=== PATIENT | male | born 1975 | race Two or more races ===

== ENCOUNTER 2020-03-29 19:16 | Emergency (ER) | payer OTHER, SELFPAY ==
[2020-03-29 19:49] VITALS: BP 124/79; PULSE 90; RESP 18; TEMP 37; O2SAT 96; BMI 34.4
[2020-03-29 20:57] VITALS: BP 118/77; PULSE 91; RESP 16; TEMP 36.9; O2SAT 97
--- NOTE | 2020-03-29 20:58 | XR_ITS ---
EXAMINATION: XR TIBIA AND FIBULA, LEFT CLINICAL INFORMATION: Cellulitis with question of osteomyelitis COMPARISON: CT tibia and fibula 11/23/2019 TECHNIQUE: AP and lateral views of the left tibia and fibula were obtained. FINDINGS: Since the prior CT, plate and screw devices have been removed from the tibia and fibula. Screw holes are seen. A nonhealed fracture of the distal fibular diaphysis is present. Periosteal reaction is seen. No definite bony destructive lesions are seen to suggest osteomyelitis. MRI would be significantly more sensitive. XR/XR tibia fibula LT 2V IMPRESSION: All hardware has been removed. No gross bony destructive disease to suggest osteomyelitis. MRI would be more sensitive.
[2020-03-29 21:32] LABS: MANUAL DIFF FLAG NO
[2020-03-29 21:42] LABS: Basophils Absolute Auto 0.1 X10*3/uL (0.0-0.2); Basophils Percent Auto 0.5 % (0-2); Eosinophils Absolute Auto 0.7 X10*3/uL (0.0-0.4); Eosinophils Percent Auto 6.7 % (0-4); Hematocrit 43.7 % (42-52); Hemoglobin 14.7 g/dl (14.0-18.0); Imm Gran Abs Auto 0.03 X10*3/uL (0.00-0.03); Imm Gran Pct Auto 0.3 % (0.0-0.4); Lymphocytes Percent Auto 27.1 % (20-40); Mean Corpuscular HGB Conc 33.6 g/dl (31.0-36.0); Mean Corpuscular Hemoglobin 28.9 pg (27.0-33.0); Mean Corpuscular Volume 85.9 fL (80-98); Mean Platelet Volume 11.8 fL (9.4-12.4); Monocytes Absolute Auto 0.9 X10*3/uL (0.1-1.2); Monocytes Percent Auto 7.9 % (2-11); Neutrophils Absolute Auto 6.4 X10*3/uL (2.0-8.3); Neutrophils Percent Auto 57.5 % (45-73); Platelet Count 320 X10*3/uL (160-400); Red Blood Count 5.09 X10*6/uL (4.60-5.80); Red Cell Distribution Width 12.2 % (11.0-16.0); White Blood Count 11.1 X10*3/uL (4.8-10.8)
[2020-03-29 22:42] VITALS: BP 110/66; PULSE 92; RESP 18; TEMP 36.6; O2SAT 98
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
== END 2020-03-30 01:59 | disposition home or self-care (01) ==
PROVIDERS: Emergency Provider Emergency Medicine; PCP Internal Medicine
DX: L03.116 Cellulitis of left lower limb (principal); M75.32 Calcific tendinitis of left shoulder; M25.512 Pain in left shoulder; Z79.899 Other long term (current) drug therapy
CPT/HCPCS: 36415; 73590; 85025; 87040; 99284

== ENCOUNTER 2020-06-23 09:24 | Outpatient (REF) | payer OTHER, SELFPAY ==
--- NOTE | 2020-06-23 09:33 | ECG_ITS ---
Test Reason : PREPROC EXAM Blood Pressure : / mmHG Vent. Rate : 071 BPM Atrial Rate : 071 BPM P-R Int : 130 ms QRS Dur : 080 ms QT Int : 394 ms P-R-T Axes : 000 036 035 degrees QTc Int : 428 ms Normal sinus rhythm Low voltage QRS Borderline ECG No significant changes when compared with the previous EKG of 23 sep 2011 Referred By: Mart Garcia Electronically Signed By:BAMBI LOPEZ
[2020-06-23 10:04] LABS: MANUAL DIFF FLAG NO
[2020-06-23 10:07] LABS: Glucose Urine UA NEG (NEG); Leukocyte Esterase Urine NEG (NEG); Nitrite Urine NEG (NEG); Specific Gravity - Urine 1.025 (1.005-1.025); Urine Blood NEG (NEG); Urine Ketones NEG (NEG); Urine Protein NEG (NEG-TRACE)
[2020-06-23 10:08] LABS: Appearance Urine CLEAR; Color Urine YELLOW
[2020-06-23 10:12] LABS: Basophils Absolute Auto 0.1 X10*3/uL (0.0-0.2); Basophils Percent Auto 0.6 % (0-2); Eosinophils Absolute Auto 0.7 X10*3/uL (0.0-0.4); Eosinophils Percent Auto 9.1 % (0-4); Hematocrit 43.4 % (42-52); Hemoglobin 14.2 g/dl (14.0-18.0); Imm Gran Abs Auto 0.01 X10*3/uL (0.00-0.03); Imm Gran Pct Auto 0.1 % (0.0-0.4); Lymphocytes Absolute Auto 2.7 X10*3/uL (1.2-4.9); Lymphocytes Percent Auto 34.6 % (20-40); Mean Corpuscular HGB Conc 32.7 g/dl (31.0-36.0); Mean Corpuscular Hemoglobin 28.5 pg (27.0-33.0); Mean Platelet Volume 11.2 fL (9.4-12.4); Monocytes Absolute Auto 0.6 X10*3/uL (0.1-1.2); Monocytes Percent Auto 8.1 % (2-11); Neutrophils Absolute Auto 3.8 X10*3/uL (2.0-8.3); Neutrophils Percent Auto 47.5 % (45-73); Platelet Count 280 X10*3/uL (160-400); Red Blood Count 4.99 X10*6/uL (4.60-5.80); Red Cell Distribution Width 12.5 % (11.0-16.0); White Blood Count 7.9 X10*3/uL (4.8-10.8)
[2020-06-23 10:14] LABS: INTERNATIONAL NORM RATIO 0.9 (0.9-1.1); Prothrombin Time 11.2 SEC (10.8-13.0)
[2020-06-23 10:16] LABS: Partial Thromboplastin Time 32.8 SEC (24.1-38.0)
[2020-06-23 10:25] LABS: Estimated Average Glucose 214 mg/dL; Hemoglobin A1c % 9.1 %
[2020-06-23 10:49] LABS: Alanine Aminotransferase 35 U/L (0-40); Albumin Level 4.3 g/dL (3.5-5.0); Alkaline Phosphatase 114 U/L (39-117); Anion Gap 12 (12-20); Aspartate Amino Transferase 20 U/L (5-37); Bilirubin Total 0.5 mg/dL (0.0-1.0); Blood Urea Nitrogen 13 mg/dL (9-16); Carbon Dioxide 26 mmol/L (22-29); Chloride 104 mmol/L (96-108); Estimated Glomerular Filt Rate > 60; Glucose Random 141 mg/dL (60-115); Potassium 4.4 mmol/L (3.3-5.1); Sodium 138 mmol/L (135-145); Total Protein 7.5 g/dL (6.5-8.0)
== END 2020-06-23 09:25 | disposition home or self-care (01) ==
LOC: HO.LAB 09:24
PROVIDERS: PCP Internal Medicine; Visit Provider Internal Medicine
DX: Z01.818 Encounter for other preprocedural examination (principal); E11.9 Type 2 diabetes mellitus without complications; I10 Essential (primary) hypertension; E78.00 Pure hypercholesterolemia, unspecified; Z79.4 Long term (current) use of insulin
CPT/HCPCS: 36415; 80053; 81003; 83036; 85025; 85610; 85730; 93005

== ENCOUNTER 2020-10-28 08:20 | Outpatient (REF) | payer OTHER, SELFPAY ==
[2020-10-28 09:58] LABS: MANUAL DIFF FLAG NO
[2020-10-28 10:07] LABS: Basophils Percent Auto 0.3 % (0-2); Eosinophils Absolute Auto 0.5 X10*3/uL (0.0-0.4); Eosinophils Percent Auto 4.9 % (0-4); Hematocrit 43.9 % (42-52); Hemoglobin 14.1 g/dl (14.0-18.0); Imm Gran Abs Auto 0.03 X10*3/uL (0.00-0.03); Imm Gran Pct Auto 0.3 % (0.0-0.4); Lymphocytes Absolute Auto 3.8 X10*3/uL (1.2-4.9); Lymphocytes Percent Auto 34.4 % (20-40); Mean Corpuscular HGB Conc 32.1 g/dl (31.0-36.0); Mean Corpuscular Hemoglobin 27.4 pg (27.0-33.0); Mean Corpuscular Volume 85.2 fL (80-98); Mean Platelet Volume 11.5 fL (9.4-12.4); Neutrophils Absolute Auto 5.6 X10*3/uL (2.0-8.3); Neutrophils Percent Auto 51.1 % (45-73); Platelet Count 310 X10*3/uL (160-400); Red Blood Count 5.15 X10*6/uL (4.60-5.80); Red Cell Distribution Width 12.5 % (11.0-16.0)
[2020-10-28 10:11] LABS: Alanine Aminotransferase 14 U/L (0-40); Albumin Level 4.7 g/dL (3.5-5.0); Alkaline Phosphatase 131 U/L (39-117); Anion Gap 11 (12-20); Aspartate Amino Transferase 15 U/L (5-37); Bilirubin Total 0.5 mg/dL (0.0-1.0); Blood Urea Nitrogen 21 mg/dL (9-16); Carbon Dioxide 29 mmol/L (22-29); Chloride 102 mmol/L (96-108); Cholesterol 163 mg/dL; Estimated Glomerular Filt Rate > 60; Glucose Fasting 138 mg/dL (60-99); HDL Cholesterol 39 mg/dL; LDL Cholesterol Calculated 94 mg/dl; Potassium 4.8 mmol/L (3.3-5.1); Sodium 137 mmol/L (135-145); Total Protein 8.2 g/dL (6.5-8.0); Triglycerides 152 mg/dL
[2020-10-28 10:33] LABS: TSH reflex Free T4 3.33 uIU/mL (0.32-4.0)
[2020-10-28 10:42] LABS: Estimated Average Glucose 174 mg/dL; Hemoglobin A1c % 7.7 %
[2020-10-28 11:40] LABS: Glucose Urine UA 250 MG/DL (NEG); Leukocyte Esterase Urine NEG (NEG); Nitrite Urine NEG (NEG); Specific Gravity - Urine 1.025 (1.005-1.025); Urine Blood NEG (NEG); Urine Ketones NEG (NEG); Urine Protein NEG (NEG-TRACE)
[2020-10-28 11:44] LABS: Appearance Urine CLEAR; Color Urine YELLOW
[2020-10-28 13:35] LABS: Creatinine Urine 118.57 mg/dL
== END 2020-10-28 08:21 | disposition home or self-care (01) ==
LOC: HO.LAB 08:20
PROVIDERS: PCP Internal Medicine; Visit Provider Internal Medicine
DX: I10 Essential (primary) hypertension (principal); G63 Polyneuropathy in diseases classified elsewhere; E11.9 Type 2 diabetes mellitus without complications; E78.00 Pure hypercholesterolemia, unspecified; E66.9 Obesity, unspecified; Z79.4 Long term (current) use of insulin
CPT/HCPCS: 36415; 80053; 80061; 81003; 82043; 83036; 84443; 85025

== ENCOUNTER 2021-02-08 12:08 | Outpatient (REF) | payer OTHER, SELFPAY ==
[2021-02-08 13:21] LABS: Basophils Percent Auto 0.3 % (0-2); Eosinophils Absolute Auto 0.7 X10*3/uL (0.0-0.4); Eosinophils Percent Auto 6.8 % (0-4); Hematocrit 44.9 % (42-52); Hemoglobin 14.8 g/dl (14.0-18.0); Imm Gran Abs Auto 0.03 X10*3/uL (0.00-0.03); Imm Gran Pct Auto 0.3 % (0.0-0.4); Lymphocytes Absolute Auto 3.2 X10*3/uL (1.2-4.9); Lymphocytes Percent Auto 32.4 % (20-40); MANUAL DIFF FLAG NO; Mean Corpuscular Hemoglobin 28.1 pg (27.0-33.0); Mean Corpuscular Volume 85.4 fL (80-98); Mean Platelet Volume 11.4 fL (9.4-12.4); Monocytes Absolute Auto 0.9 X10*3/uL (0.1-1.2); Monocytes Percent Auto 8.9 % (2-11); Neutrophils Percent Auto 51.3 % (45-73); Platelet Count 243 X10*3/uL (160-400); Red Blood Count 5.26 X10*6/uL (4.60-5.80); Red Cell Distribution Width 13.4 % (11.0-16.0); White Blood Count 9.7 X10*3/uL (4.8-10.8)
[2021-02-08 13:25] LABS: Estimated Average Glucose 223 mg/dL; Hemoglobin A1c % 9.4 %
[2021-02-08 13:46] LABS: Appearance Urine CLEAR; Color Urine YELLOW; Glucose Urine UA NEG (NEG); Leukocyte Esterase Urine NEG (NEG); Nitrite Urine NEG (NEG); Specific Gravity - Urine 1.025 (1.005-1.025); Urine Blood NEG (NEG); Urine Ketones NEG (NEG); Urine Protein NEG (NEG-TRACE)
[2021-02-08 13:49] LABS: Alanine Aminotransferase 27 U/L (0-40); Albumin Level 4.6 g/dL (3.5-5.0); Alkaline Phosphatase 109 U/L (39-117); Anion Gap 15 (12-20); Aspartate Amino Transferase 20 U/L (5-37); Bilirubin Total 0.8 mg/dL (0.0-1.0); Blood Urea Nitrogen 20 mg/dL (9-16); Calcium 9.8 mg/dL (8.4-10.2); Carbon Dioxide 22 mmol/L (22-29); Chloride 103 mmol/L (96-108); Cholesterol 169 mg/dL; Estimated Glomerular Filt Rate > 60; Glucose Fasting 171 mg/dL (60-99); HDL Cholesterol 43 mg/dL; LDL Cholesterol Calculated 103 mg/dl; Potassium 4.2 mmol/L (3.3-5.1); Sodium 136 mmol/L (135-145); Triglycerides 118 mg/dL
[2021-02-08 14:03] LABS: Creatinine Urine 226.56 mg/dL; Microalbum/Creatinine Ratio Ur 12.8 ug/mg cr
[2021-02-08 14:12] LABS: Prostate Specific Antigen 0.23 ng/mL (<0.05-4.0); TSH reflex Free T4 2.35 uIU/mL (0.32-4.0); Vitamin D 25-OH Total 28.9 ng/mL (>30)
== END 2021-02-08 12:09 | disposition home or self-care (01) ==
LOC: HO.LAB 12:08
PROVIDERS: PCP Internal Medicine; Visit Provider Internal Medicine
DX: Z00.00 Encounter for general adult medical examination without abnormal findings (principal); Z12.5 Encounter for screening for malignant neoplasm of prostate; E11.9 Type 2 diabetes mellitus without complications; E78.00 Pure hypercholesterolemia, unspecified; I10 Essential (primary) hypertension; N40.1 Benign prostatic hyperplasia with lower urinary tract symptoms; E55.9 Vitamin D deficiency, unspecified; E66.9 Obesity, unspecified; Z79.4 Long term (current) use of insulin
CPT/HCPCS: 36415; 80053; 80061; 81003; 82043; 82306; 83036; 84153; 84443; 85025

== ENCOUNTER 2021-11-09 07:59 | Outpatient (REF) | payer OTHER, SELFPAY ==
[2021-11-09 08:11] LABS: MANUAL DIFF FLAG NO
[2021-11-09 09:40] LABS: Basophils Percent Auto 0.4 % (0-2); Eosinophils Absolute Auto 0.6 X10*3/uL (0.0-0.4); Eosinophils Percent Auto 6.7 % (0-4); Hematocrit 43.3 % (42.0-52.0); Hemoglobin 14.5 g/dl (14.0-18.0); Imm Gran Abs Auto 0.01 X10*3/uL (0.00-0.03); Imm Gran Pct Auto 0.1 % (0.0-0.4); Lymphocytes Absolute Auto 3.7 X10*3/uL (1.2-4.9); Lymphocytes Percent Auto 40.9 % (20-40); Mean Corpuscular HGB Conc 33.5 g/dl (31.0-36.0); Mean Corpuscular Hemoglobin 29.2 pg (27.0-33.0); Mean Corpuscular Volume 87.3 fL (80.0-98.0); Mean Platelet Volume 11.8 fL (9.4-12.4); Monocytes Absolute Auto 0.8 X10*3/uL (0.1-1.2); Monocytes Percent Auto 8.6 % (2-11); Neutrophils Absolute Auto 3.9 x10*3/uL (2.0-8.3); Neutrophils Percent Auto 43.3 % (45-73); Platelet Count 258 X10*3/uL (160-400); Red Blood Count 4.96 X10*6/uL (4.60-5.80); Red Cell Distribution Width 12.2 % (11.0-16.0); White Blood Count 9.1 X10*3/uL (4.8-10.8)
[2021-11-09 09:50] LABS: Appearance Urine CLEAR; Color Urine YELLOW; Glucose Urine UA NEG (NEG); Leukocyte Esterase Urine NEG (NEG); Nitrite Urine NEG (NEG); PH 5.5 (5.0-8.0); Specific Gravity - Urine >= 1.030 (1.005-1.025); Urine Blood NEG (NEG); Urine Ketones NEG (NEG); Urine Protein NEG (NEG-TRACE)
[2021-11-09 09:52] LABS: Estimated Average Glucose 237 mg/dL; Hemoglobin A1c % 9.9 %
[2021-11-09 10:22] LABS: Alanine Aminotransferase 28 U/L (0-40); Albumin Level 4.4 g/dL (3.5-5.0); Alkaline Phosphatase 93 U/L (39-117); Anion Gap 14 (12-20); Aspartate Amino Transferase 19 U/L (5-37); Bilirubin Total 0.6 mg/dL (0.0-1.0); Blood Urea Nitrogen 18 mg/dL (9-16); Calcium 9.1 mg/dL (8.4-10.2); Carbon Dioxide 23 mmol/L (22-29); Chloride 104 mmol/L (96-108); Cholesterol 171 mg/dL; Estimated Glomerular Filt Rate > 60; Glucose Fasting 115 mg/dL (60-99); HDL Cholesterol 38 mg/dL; LDL Cholesterol Calculated 93 mg/dl; Potassium 4.3 mmol/L (3.3-5.1); Sodium 137 mmol/L (135-145); Total Protein 7.6 g/dL (6.5-8.0); Triglycerides 203 mg/dL
[2021-11-09 10:34] LABS: TSH reflex Free T4 3.05 uIU/mL (0.32-4.0); Vitamin D 25-OH Total 26.5 ng/mL (>30)
[2021-11-09 10:37] LABS: Creatinine Urine 237.61 mg/dL; Microalbum/Creatinine Ratio Ur 7.1 ug/mg cr
== END 2021-11-09 08:00 | disposition home or self-care (01) ==
LOC: HO.LAB 07:59
PROVIDERS: PCP Internal Medicine; Visit Provider Internal Medicine
DX: E11.9 Type 2 diabetes mellitus without complications (principal); E78.00 Pure hypercholesterolemia, unspecified; I10 Essential (primary) hypertension; E55.9 Vitamin D deficiency, unspecified
CPT/HCPCS: 36415; 80053; 80061; 81003; 82043; 82306; 83036; 84443; 85025

== ENCOUNTER 2022-04-23 08:10 | Outpatient (REF) | payer OTHER, SELFPAY ==
[2022-04-23 08:38] LABS: MANUAL DIFF FLAG NO
[2022-04-23 08:50] LABS: Basophils Absolute Auto 0.1 X10*3/uL (0.0-0.2); Basophils Percent Auto 0.5 % (0-2); Eosinophils Absolute Auto 0.9 X10*3/uL (0.0-0.4); Eosinophils Percent Auto 9.4 % (0-4); Hematocrit 43.6 % (42.0-52.0); Hemoglobin 14.6 g/dl (14.0-18.0); Imm Gran Abs Auto 0.02 X10*3/uL (0.00-0.03); Imm Gran Pct Auto 0.2 % (0.0-0.4); Lymphocytes Absolute Auto 3.4 X10*3/uL (1.2-4.9); Lymphocytes Percent Auto 35.3 % (20-40); Mean Corpuscular HGB Conc 33.5 g/dl (31.0-36.0); Mean Corpuscular Volume 86.5 fL (80.0-98.0); Mean Platelet Volume 11.1 fL (9.4-12.4); Monocytes Percent Auto 10.4 % (2-11); Neutrophils Absolute Auto 4.2 x10*3/uL (2.0-8.3); Neutrophils Percent Auto 44.2 % (45-73); Platelet Count 229 X10*3/uL (160-400); Red Blood Count 5.04 X10*6/uL (4.60-5.80); Red Cell Distribution Width 13.2 % (11.0-16.0); White Blood Count 9.5 X10*3/uL (4.8-10.8)
[2022-04-23 08:51] LABS: Appearance Urine Clear; Color Urine Yellow; Glucose Urine UA Negative (Negative); Leukocyte Esterase Urine Negative (Negative); Nitrite Urine Negative (Negative); PH 5.5 (5.0-9.0); Specific Gravity - Urine 1.025 (1.005-1.025); Urine Blood Negative (Negative); Urine Ketones Negative (Negative); Urine Protein Negative (Neg-Trace)
[2022-04-23 08:58] LABS: Estimated Average Glucose 183 mg/dL
[2022-04-23 09:12] LABS: Creatinine Urine 187.88 mg/dL; Microalbum/Creatinine Ratio Ur 6.3 ug/mg cr
[2022-04-23 09:37] LABS: Alanine Aminotransferase 19 U/L (0-40); Albumin Level 4.5 g/dL (3.5-5.0); Alkaline Phosphatase 76 U/L (39-117); Anion Gap 10 (12-20); Aspartate Amino Transferase 18 U/L (5-37); Bilirubin Total 0.6 mg/dL (0.0-1.0); Blood Urea Nitrogen 17 mg/dL (9-16); Calcium 9.6 mg/dL (8.4-10.2); Carbon Dioxide 31 mmol/L (22-29); Chloride 106 mmol/L (96-108); Cholesterol 175 mg/dL; Estimated Glomerular Filt Rate > 60; Glucose Fasting 105 mg/dL (60-99); HDL Cholesterol 42 mg/dL; LDL Cholesterol Calculated 111 mg/dl; Potassium 4.9 mmol/L (3.3-5.1); Prostate Specific Antigen 0.55 ng/mL (<0.05-4.0); Sodium 142 mmol/L (135-145); TSH reflex Free T4 2.53 uIU/mL (0.32-4.0); Total Protein 7.7 g/dL (6.5-8.0); Triglycerides 113 mg/dL; Vitamin D 25-OH Total 33.1 ng/mL (>30)
== END 2022-04-23 08:11 | disposition home or self-care (01) ==
LOC: HO.LAB 08:10
PROVIDERS: PCP Internal Medicine; Visit Provider Internal Medicine
DX: E55.9 Vitamin D deficiency, unspecified (principal); I10 Essential (primary) hypertension; E78.00 Pure hypercholesterolemia, unspecified; N40.0 Benign prostatic hyperplasia without lower urinary tract symptoms; E11.9 Type 2 diabetes mellitus without complications
CPT/HCPCS: 36415; 80053; 80061; 81003; 82043; 82306; 83036; 84153; 84443; 85025

== ENCOUNTER 2023-02-21 11:38 | Outpatient (AMB) | payer MEDICARE, MEDICAID, SELFPAY ==
[2023-02-21 11:42] VITALS: BP 110/64; PULSE 75; O2SAT 99; BMI 30.4
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
== END 2023-02-21 12:27 | disposition home or self-care (01) ==
PROVIDERS: PCP Internal Medicine; Visit Provider Internal Medicine
DX: E11.9 Type 2 diabetes mellitus without complications (principal); Z79.4 Long term (current) use of insulin; G63 Polyneuropathy in diseases classified elsewhere; Z23 Encounter for immunization; I10 Essential (primary) hypertension; E78.00 Pure hypercholesterolemia, unspecified; R80.9 Proteinuria, unspecified; M79.7 Fibromyalgia; N40.1 Benign prostatic hyperplasia with lower urinary tract symptoms; R35.0 Frequency of micturition; G47.00 Insomnia, unspecified; E66.9 Obesity, unspecified
CPT/HCPCS: 90471; 90686; 99214

== ENCOUNTER 2023-05-17 07:07 | Outpatient (REF) | payer MEDICARE, MEDICAID, SELFPAY ==
[2023-05-17 07:48] LABS: MANUAL DIFF FLAG NO
[2023-05-17 08:17] LABS: Basophils Absolute Auto 0.1 X10*3/uL (0.0-0.2); Basophils Percent Auto 0.5 % (0-2); Eosinophils Absolute Auto 0.5 X10*3/uL (0.0-0.4); Eosinophils Percent Auto 4.1 % (0-4); Hematocrit 47.2 % (42.0-52.0); Hemoglobin 15.9 g/dl (14.0-18.0); Imm Gran Abs Auto 0.02 X10*3/uL (0.00-0.03); Imm Gran Pct Auto 0.2 % (0.0-0.4); Lymphocytes Absolute Auto 3.9 X10*3/uL (1.2-4.9); Lymphocytes Percent Auto 35.1 % (20-40); Mean Corpuscular HGB Conc 33.7 g/dl (31.0-36.0); Mean Corpuscular Hemoglobin 28.9 pg (27.0-33.0); Mean Corpuscular Volume 85.7 fL (80.0-98.0); Mean Platelet Volume 11.9 fL (9.4-12.4); Monocytes Percent Auto 8.6 % (2-11); Neutrophils Absolute Auto 5.7 x10*3/uL (2.0-8.3); Neutrophils Percent Auto 51.5 % (45-73); Platelet Count 247 X10*3/uL (160-400); Red Blood Count 5.51 X10*6/uL (4.60-5.80); Red Cell Distribution Width 12.4 % (11.0-16.0)
[2023-05-17 08:26] LABS: Estimated Average Glucose 246 mg/dL; Hemoglobin A1c % 10.2 % (<6.0)
[2023-05-17 08:55] LABS: Alanine Aminotransferase 16 U/L (0-40); Albumin Level 4.8 g/dL (3.5-5.0); Alkaline Phosphatase 110 U/L (39-117); Anion Gap 15 (12-20); Aspartate Amino Transferase 19 U/L (5-37); Bilirubin Total 0.8 mg/dL (0.0-1.0); Blood Urea Nitrogen 15 mg/dL (9-16); Calcium 10.3 mg/dL (8.4-10.2); Carbon Dioxide 25 mmol/L (22-29); Chloride 100 mmol/L (96-108); Cholesterol 259 mg/dL (<200); Estimated Glomerular Filt Rate > 60; Glucose Fasting 201 mg/dL (60-99); HDL Cholesterol 48 mg/dL (>40); LDL Cholesterol Calculated 162 mg/dL (<100); Potassium 3.6 mmol/L (3.3-5.1); Sodium 136 mmol/L (135-145); Total Protein 8.9 g/dL (6.5-8.0); Triglycerides 249 mg/dL (<150)
[2023-05-17 09:07] LABS: Appearance Urine Clear; Color Urine Dark Yellow; Glucose Urine UA >=1000 mg/dL (Negative); Leukocyte Esterase Urine Negative (Negative); Nitrite Urine Negative (Negative); PH 5.5 (5.0-9.0); Specific Gravity - Urine >= 1.030 (1.005-1.025); UMIC TRIGGER UACC YES; Urine Blood Negative (Negative); Urine Ketones Trace mg/dL (Negative); Urine Protein Negative (Neg-Trace)
[2023-05-17 09:12] LABS: TSH reflex Free T4 3.92 uIU/mL (0.32-4.0)
[2023-05-17 09:14] LABS: Bacteria Urine None Seen (None Seen); Hyaline Casts Urine 0-2 /LPF (0-2); RBC Urine 0-2 /HPF (0-2); Squamous Epithelial Cell Urine 0-2 /HPF (0-2); WBC Urine 0-5 /HPF (0-5)
[2023-05-17 10:55] LABS: Creatinine Urine 162.12 mg/dL; Microalbum/Creatinine Ratio Ur 19.7 ug/mg cr (<30)
== END 2023-05-17 07:08 | disposition home or self-care (01) ==
LOC: HO.LAB 07:07
PROVIDERS: PCP Internal Medicine; Visit Provider Internal Medicine
DX: E11.9 Type 2 diabetes mellitus without complications (principal); I10 Essential (primary) hypertension; E78.00 Pure hypercholesterolemia, unspecified; E55.9 Vitamin D deficiency, unspecified; R30.0 Dysuria
CPT/HCPCS: 36415; 80053; 80061; 81001; 81003; 82043; 82306; 82570; 83036; 84443; 85025

== ENCOUNTER 2023-06-05 11:49 | Outpatient (AMB) | payer OTHER, SELFPAY ==
[2023-06-05 12:32] VITALS: BP 110/80; PULSE 100; O2SAT 98; BMI 28.3
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
== END 2023-06-05 13:28 | disposition home or self-care (01) ==
PROVIDERS: PCP Internal Medicine; Visit Provider Internal Medicine
DX: E11.9 Type 2 diabetes mellitus without complications (principal); Z79.4 Long term (current) use of insulin; E66.9 Obesity, unspecified; Z68.28 Body mass index [BMI] 28.0-28.9, adult; G63 Polyneuropathy in diseases classified elsewhere; I10 Essential (primary) hypertension; E78.00 Pure hypercholesterolemia, unspecified; R80.9 Proteinuria, unspecified; M79.7 Fibromyalgia; N40.1 Benign prostatic hyperplasia with lower urinary tract symptoms; R35.0 Frequency of micturition; G47.00 Insomnia, unspecified
CPT/HCPCS: 99214

== ENCOUNTER 2023-10-30 07:08 | Outpatient (REF) | payer OTHER, SELFPAY ==
[2023-10-30 07:25] LABS: MANUAL DIFF FLAG NO
[2023-10-30 07:45] LABS: Basophils Absolute Auto 0.1 X10*3/uL (0.0-0.2); Basophils Percent Auto 0.7 % (0-2); Eosinophils Absolute Auto 0.6 X10*3/uL (0.0-0.4); Eosinophils Percent Auto 6.2 % (0-4); Hematocrit 42.6 % (42.0-52.0); Hemoglobin 14.2 g/dl (14.0-18.0); Imm Gran Abs Auto 0.02 X10*3/uL (0.00-0.03); Imm Gran Pct Auto 0.2 % (0.0-0.4); Lymphocytes Absolute Auto 3.7 X10*3/uL (1.2-4.9); Lymphocytes Percent Auto 37.5 % (20-40); Mean Corpuscular HGB Conc 33.3 g/dl (31.0-36.0); Mean Corpuscular Hemoglobin 29.4 pg (27.0-33.0); Mean Corpuscular Volume 88.2 fL (80.0-98.0); Mean Platelet Volume 10.9 fL (9.4-12.4); Monocytes Absolute Auto 0.8 X10*3/uL (0.1-1.2); Monocytes Percent Auto 7.6 % (2-11); Neutrophils Absolute Auto 4.7 x10*3/uL (2.0-8.3); Neutrophils Percent Auto 47.8 % (45-73); Platelet Count 196 X10*3/uL (160-400); Red Blood Count 4.83 X10*6/uL (4.60-5.80); Red Cell Distribution Width 12.7 % (11.0-16.0); White Blood Count 9.9 X10*3/uL (4.8-10.8)
[2023-10-30 07:55] LABS: Estimated Average Glucose 232 mg/dL; Hemoglobin A1c % 9.7 % (<6.0)
[2023-10-30 08:31] LABS: Alanine Aminotransferase 16 U/L (0-40); Albumin Level 3.9 g/dL (3.5-5.0); Alkaline Phosphatase 72 U/L (39-117); Anion Gap 10 (12-20); Aspartate Amino Transferase 16 U/L (5-37); Bilirubin Total 0.2 mg/dL (0.0-1.0); Blood Urea Nitrogen 18 mg/dL (9-16); Calcium 9.1 mg/dL (8.4-10.2); Carbon Dioxide 28 mmol/L (22-29); Chloride 106 mmol/L (96-108); Cholesterol 158 mg/dL (<200); Estimated Glomerular Filt Rate > 60; Glucose Fasting 109 mg/dL (60-99); HDL Cholesterol 43 mg/dL (>40); LDL Cholesterol Calculated 94 mg/dL (<100); Potassium 3.8 mmol/L (3.3-5.1); Sodium 140 mmol/L (135-145); Total Protein 7.2 g/dL (6.5-8.0); Triglycerides 109 mg/dL (<150)
[2023-10-30 08:32] LABS: Appearance Urine Clear; Color Urine Yellow; Glucose Urine UA >=1000 mg/dL (Negative); Leukocyte Esterase Urine Negative (Negative); Nitrite Urine Negative (Negative); PH 5.5 (5.0-9.0); Specific Gravity - Urine 1.025 (1.005-1.025); UMIC TRIGGER UACC YES; Urine Blood Negative (Negative); Urine Ketones Negative (Negative); Urine Protein Negative (Neg-Trace)
[2023-10-30 08:37] LABS: Bacteria Urine None Seen (None Seen); Hyaline Casts Urine 0-2 /LPF (0-2); RBC Urine 0-2 /HPF (0-2); Squamous Epithelial Cell Urine 0-2 /HPF (0-2); WBC Urine 0-5 /HPF (0-5)
[2023-10-30 08:52] LABS: Folate 11.9 ng/mL (> or = 4.0); Vitamin B12 384 pg/mL (200-900); Vitamin D 25-OH Total 24.7 ng/mL (>30)
[2023-10-30 08:59] LABS: Creatinine Urine 78.36 mg/dL; Microalbumin Urine < 5.0 mg/L
== END 2023-10-30 07:09 | disposition home or self-care (01) ==
LOC: HO.LAB 07:08
PROVIDERS: PCP Internal Medicine; Visit Provider Internal Medicine
DX: E55.9 Vitamin D deficiency, unspecified (principal); E78.00 Pure hypercholesterolemia, unspecified; E11.9 Type 2 diabetes mellitus without complications; E53.8 Deficiency of other specified B group vitamins; D64.9 Anemia, unspecified
CPT/HCPCS: 36415; 80053; 80061; 81001; 82306; 82570; 82607; 82746; 83036; 84443; 85025

== ENCOUNTER 2023-10-30 15:11 | Outpatient (AMB) | payer OTHER, SELFPAY ==
[2023-10-30 15:14] VITALS: BP 112/72; PULSE 70; O2SAT 99; BMI 31.0
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
== END 2023-10-30 16:16 | disposition home or self-care (01) ==
PROVIDERS: PCP Internal Medicine; Visit Provider Internal Medicine
DX: E11.9 Type 2 diabetes mellitus without complications (principal); Z79.4 Long term (current) use of insulin; I10 Essential (primary) hypertension; E78.00 Pure hypercholesterolemia, unspecified; G63 Polyneuropathy in diseases classified elsewhere; R80.9 Proteinuria, unspecified; M79.7 Fibromyalgia; N40.1 Benign prostatic hyperplasia with lower urinary tract symptoms; R35.0 Frequency of micturition; G47.00 Insomnia, unspecified; E66.9 Obesity, unspecified
CPT/HCPCS: 99214; G2211

== ENCOUNTER 2023-11-03 15:33 | Emergency (ER) | payer OTHER, SELFPAY ==
[2023-11-03 15:36] VITALS: BP 132/77; PULSE 111; RESP 18; TEMP 36.5; O2SAT 97; BMI 30.6
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
[2023-11-03 15:46] LABS: MANUAL DIFF FLAG NO
[2023-11-03 15:50] LABS: Basophils Absolute Auto 0.1 X10*3/uL (0.0-0.2); Basophils Percent Auto 0.7 % (0-2); Eosinophils Absolute Auto 0.9 X10*3/uL (0.0-0.4); Eosinophils Percent Auto 9.3 % (0-4); Hematocrit 46.3 % (42.0-52.0); Hemoglobin 15.7 g/dl (14.0-18.0); Imm Gran Abs Auto 0.03 X10*3/uL (0.00-0.03); Imm Gran Pct Auto 0.3 % (0.0-0.4); Lymphocytes Absolute Auto 2.3 X10*3/uL (1.2-4.9); Lymphocytes Percent Auto 22.6 % (20-40); Mean Corpuscular HGB Conc 33.9 g/dl (31.0-36.0); Mean Corpuscular Hemoglobin 29.3 pg (27.0-33.0); Mean Corpuscular Volume 86.5 fL (80.0-98.0); Monocytes Absolute Auto 0.9 X10*3/uL (0.1-1.2); Monocytes Percent Auto 8.9 % (2-11); Neutrophils Absolute Auto 5.9 x10*3/uL (2.0-8.3); Neutrophils Percent Auto 58.2 % (45-73); Platelet Count 224 X10*3/uL (160-400); Red Blood Count 5.35 X10*6/uL (4.60-5.80); Red Cell Distribution Width 12.8 % (11.0-16.0); White Blood Count 10.1 X10*3/uL (4.8-10.8)
[2023-11-03 16:01] LABS: Alanine Aminotransferase 21 U/L (0-40); Albumin Level 4.5 g/dL (3.5-5.0); Alkaline Phosphatase 87 U/L (39-117); Anion Gap 13 (12-20); Aspartate Amino Transferase 18 U/L (5-37); Bilirubin Total 0.5 mg/dL (0.0-1.0); Blood Urea Nitrogen 13 mg/dL (9-16); Calcium 9.8 mg/dL (8.4-10.2); Carbon Dioxide 28 mmol/L (22-29); Chloride 104 mmol/L (96-108); Creatinine Clr Calc Pharmacy 84.4; Estimated Glomerular Filt Rate > 60; Glucose Random 174 mg/dL (60-115); Magnesium 2.1 mg/dL (1.6-2.6); Sodium 141 mmol/L (135-145); Total Protein 8.3 g/dL (6.5-8.0)
[2023-11-03] MEDS: methylPREDNISolone Sod Succ 125 MG/2 ML VIAL 60 MG IM (16:27)
[2023-11-03 16:34] VITALS: BP 132/77; PULSE 111; RESP 18; TEMP 36.5; O2SAT 97
== END 2023-11-03 16:35 | disposition home or self-care (01) ==
PROVIDERS: Physician Assistant Medical; Emergency Provider Emergency Medicine Emergency Medical Services; PCP Internal Medicine
DX: L30.9 Dermatitis, unspecified (principal); B37.2 Candidiasis of skin and nail; I10 Essential (primary) hypertension; E11.9 Type 2 diabetes mellitus without complications
CPT/HCPCS: 36415; 80053; 83735; 85025; 96372; 99282; 99284; J2919

== ENCOUNTER 2024-07-16 11:20 | Outpatient (AMB) | payer MEDICARE, SELFPAY ==
[2024-07-16 11:31] VITALS: BP 110/80; PULSE 109; O2SAT 96; BMI 29.5
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
--- OUTSIDE RECORDS SUMMARY | 2024-07-16 13:44 | XMS_ITS | Clinical Summary ---
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 Name Role Phone Unavailable Primary Care Provider Unavailabl e Immunizations Name Administration Dates Next Due Moderna Covid-19 Vaccine 12+ 05/17/2021,09/01/19,08/03/2020 Moderna Covid-19 Vaccine 6+ Bivalent 05/03/2022 Social History Tobacco Use Types Packs/Day Years Used Date Smoking Tobacco: Never Assessed Sex and Gender Information Value Date Recorded Sex Assigned at Not on file Legal Sex Male 9:34 AM EST Gender Identity Not on file Sexual Orientation Not on file Plan of Treatment Health Maintenance Due Date Last Done Comments CT Colonography 1976 Colonoscopy 1976 Colorectal Cancer Screening 1976 Depression Screening 1976 FIT DNA/Cologuard 1976 FIT 1976 FOBT 1976 HIV Screening 1976 Lipid Panel 1976 SDOH Screening 1976 Sigmoidoscopy 1976 Alcohol/Substance Use Screening 1988 Tobacco Screening 1988 Family Planning (PISQ) 12/08/1991 Hepatitis C Screening 1994 DTaP/Tdap/Td Vaccines (1 - Tdap) 12/08/1995 Hepatitis B Vaccines (1 of 3 - 19+ 3-dose series) 12/08/1995 COVID-19 Vaccine ( season) 2024 05/03/2022, 05/17/2021, 08/31/2020, Additional history exists Influenza Vaccine (#1) 2024 , 03/22/2021, 03/24/2015 Zoster Vaccines (1 of 2) 2026 RSV Patients and Patients Aged 60 years or older (1 - 1-dose 75+ series) 12/08/2051 HIB Vaccines Aged Out No longer eligi ble based on patient's age to complete this topic HPV Vaccines Aged Out No longer eligi ble based on patient's age to complete this topic Hepatitis A Vaccines Aged Out No long er eligible based on patient's age to complete this topic IPV Vaccines Aged Out No longer eligi ble based on patient's age to complete this topic Meningococcal Vaccine Aged Out No jassi sp eligible based on patient's age to complete this topic Pneumococcal Vaccine: Pediatrics (0 to 5 Years) and At-Risk Patients (6 to 49) Years) Aged Out No longer eligible based on patient's age to complete this topic RSV under 20 months Aged Out No longe r eligible based on patient's age to complete this topic Rotavirus Vaccines Aged Out No longer eligible based on patient's age to complete this topic Insurance [facility]
== END 2024-07-16 12:23 | disposition home or self-care (01) ==
PROVIDERS: PCP Internal Medicine; Visit Provider Internal Medicine
DX: Z13.9 Encounter for screening, unspecified (principal)

== ENCOUNTER → 2024-07-16 11:20 | Outpatient (BNVA) | payer MEDICARE, SELFPAY | PROVIDERS: PCP Internal Medicine; Visit Provider Internal Medicine | DX: E11.9 Type 2 diabetes mellitus without complications (principal); Z79.4 Long term (current) use of insulin; I10 Essential (primary) hypertension; E78.00 Pure hypercholesterolemia, unspecified; G63 Polyneuropathy in diseases classified elsewhere; R80.9 Proteinuria, unspecified; M79.7 Fibromyalgia; N40.1 Benign prostatic hyperplasia with lower urinary tract symptoms; R35.0 Frequency of micturition; G47.00 Insomnia, unspecified; E66.9 Obesity, unspecified | CPT/HCPCS: 83036; 96127; 99212 ==

== ENCOUNTER 2024-08-03 13:56 | Outpatient (AMB) | payer MEDICARE, MEDICAID, SELFPAY ==
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
[2024-08-03 14:01] VITALS: BP 120/80; PULSE 86; O2SAT 96; BMI 30.4
[2024-08-03 14:11] LABS: Glucose, Whole Blood 138 mg/dL (60-115)
--- OUTSIDE RECORDS SUMMARY | 2024-08-03 16:24 | XMS_ITS | Data Portability ---
Author Organization [facility], [address] Address [address] [place] [address] Assessment No assessment recorded. Plan of Treatment Reminders Order Date Submit Date Provider Last Modified By Organization Details Last Modified Time Details Appointments None record ed. Lab None record ed. Referral None record ed. Procedures None record ed. Surgeries None record ed. Imaging None record ed. Medication Orders None record ed. Patient TargetsNo targets recorded. Patient InstructionsNo instructions recorded. Reason for Referral None Reported. Procedures Surgical History Date Name Laterality Status Provider Name and Address Organization Details Recorded Time 4 OC-DOT PHYSICAL completed Alpa Brunson [place] - [facility] [employer] 11/22/2023 08:35:44 3 OC-UDS Send Out Template DOT completed Estella Power [place] - [employer] 10/22/2022 11:22:59 Imaging Results None recorded. Procedure Notes None recorded. Medical Equipment None Reported. Medications Name Sig Start Date Stop Date Status Note LastModified by Organization Details LastModified Time atorvastatin 40 mg tablet TAKE 1 TABLET BY MOUTH EVERY DAY active Not Available Not Available No t Available gabapentin 600 mg tablet TAKE 1 TABLET BY MOUTH THREE TIMES DAILY active Not Available Not Available Not Available atorvastatin 20 mg tablet TAKE 1 TABLET BY MOUTH DAILY active Not Available Not Available Not Available fluconazole 150 mg tablet TAKE 1 TABLET BY MOUTH ONCE EVERY 3 DAYS FOR 2 DOSES active Not Available Not Available No t Available prednisone 20 mg tablet TAKE 1 TABLET BY MOUTH EVERY DAY FOR 7 DAYS active Not Available Not Available No t Available clobetasol 0.05 % topical cream APPLY TO THE AFFECTED AREA(S) TWICE DAILY FOR 1 WEEK active Not Available Not Available N ot Available phentermine 37.5 mg tablet TAKE 1 TABLET BY MOUTH DAILY 30 MINUTES BEFORE BREAKFAST OR 1-2 HOURS AFTER BREAKFAST active Not Available Not Available No t Available metformin 1,000 mg tablet TAKE 1 TABLET BY MOUTH TWICE DAILY active Not Available Not Available No t Available lisinopril 5 mg tablet TAKE 1 TABLET BY MOUTH DAILY active Not Available Not Available Not Available insulin lispro protamine-li spro 100 unit/mL (75-25) subcutaneous pen INJECT 50 UNITS SUBCUTANEOU SLY IN THE MORNING AND INJECT 40 UNITS SUBCUTANEOU SLY IN THE EVENING active Not Available Not Available No t Available Novolog Mix 70-30 FlexPen U-100 Insulin 100 unit/mL subcutaneous pen INJECT 40 UNITS SUBCUTANEOU SLY EVERY DAY IN THE MORNING AND 50 UNITS SUBCUTANEOU SLY EVERY DAY IN THE EVENING active Not Available Not Available No t Available Novolog Mix 70-30 U-100 Insulin 100 unit/mL subcutaneous solution INJECT 40 UNITS SUBCUTANEOU SLY EVERY DAY IN THE MORNING AND 50 UNITS SUBCUTANEOU SLY EVERY DAY AT BEDTIME active Not Available Not Available No t Available cyclobenzapr ine 5 mg tablet TAKE 1 TABLET BY MOUTH THREE TIMES DAILY NEEDED FOR MUSCLE SPASMS active Not Available Not Available No t Available cholecalcife rol (vitamin D3) 25 mcg (1,000 unit) tablet TAKE 1 TABLET BY MOUTH ONCE DAILY active Not Available Not Available No t Available FreeStyle Lite Strips USE TO TEST BLOOD SUGAR THREE TIMES DAILY active Not Available Not Available No t Available Humalog KwikPen (U-100) Insulin 100 unit/mL subcutaneous INJECT 40 UNITS SUBCUTANEOU SLY EVERY DAY IN THE MORNING AND 50 UNITS SUBCUTANEOU SLY EVERY DAY AT BEDTIME active Not Available Not Available No t Available FreeStyle [place] Lite kit TEST BLOOD SUGAR THREE TIMES DAILY active Not Available Not Available Not Available cholecalcife rol (vitamin D3) 50 mcg (2,000 unit) tablet TAKE 1 TABLET BY MOUTH EVERY DAY active Not Available Not Available No t Available UltiCare Pen Needle 32 gauge x 5/32 USE DIRECTED TWICE DAILY active Not Available Not Available Not Available TRUEplus Lancets 33 gauge USE TO TEST BLOOD SUGAR THREE TIMES DAILY active Not Available Not Available No t Available Farxiga 10 mg tablet TAKE 1 TABLET BY MOUTH EVERY DAY IN THE MORNING active Not Available Not Available No t Available Ozempic 0.25 mg or 0.5 mg (2 mg/3 mL) subcutaneous pen injector INJECT 0.25 MG SUBCUTANEOU SLY EVERY 7 DAYS IN THE ABDOMEN, THIGHS OR UPPER ARM. ROTATE INJECTION SITES. active Not Available Not Available No t Available Vitals Date Recorded Body height Body mass index (BMI) Body weight Oxygen saturation Oxygen saturation in Arterial blood by Pulse oximetry Heart rate Respiratory rate Systolic blood pressure Diastolic blood pressure Provider Name and Address Organization Details Last Updated DateTime 4 170.18 cm 29.8 kg/m2 48554.5 5 g 97 % 97 % 83 /min 18 /min 123 mm[Hg] 82 mm[Hg] Alpa PETERSON - [facility] 4 08:39:23 Social History None recorded. Functional Status None recorded. Mental Status None recorded. Family History Nothing Reported. Medical History No medical history recorded. Past Encounters Encounter ID Performer Location Encounter Start Date Encounter Closed Date Diagnosis/Indication Diagnosis SNOMED-CT Code Diagnosis ICD10 Code Diagnosis Note [id number] [address] [address] 08/07/2017 11:29:10 08/07/2017 12:03:[id number] [address] 10/14/2020 14:01:46 10/14/2020 15:54:16 [id number] NICHOLAS CALIXTO [address] [address] 10/22/2022 11:02:40 10/22/2022 11:16:52 History and physical examination, occupation 821881182 Z02.1 [id number] [place] [address] [place] [address] 11/22/2023 08:29:49 11/22/2023 09:20:46 [employer] license medical examination [id number] Z02.4 Physical examination 588 0005 Z02.4 History an d physical examination, pre-employment 462316091 Z02.1 This physical does not replace the annual physical to be performed by your PCP. There may be additional screening tests that they will perform that we do not in the urgent care setting.Fa ilure to follow up as recommende d may result in significan t adverse health consequenc es.?I f your symptoms worsen or you develop new symptoms that concern you, go to the emergency department for further evaluation . Health Concerns Section Related Observation LastModified by Organization Detai ls LastModified Time None Recorded Concern Status LastModified by Organization Details LastModified Time None Recorded Advance Directives Directive None Recorded Payers Encounter Date Sequence Insurance Name Policy Number Policy Paula Covered Member ID Paula Member ID Guarantor Name 10/22/2022 OC-ESCREEN [employer] FED EX GROUND Bon Abernathy 11/22/2023 OC-PAY AT TIME OF SERVICE 2022 Bon Abernathy OTHER OTHER Bon Abernathy Notes Date Note Type Note Provider Name and Address Organization Details Recorded Time 11/22/2023 text/html PhysicalReported bypatient.source of patient informationpatient 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
--- OUTSIDE RECORDS SUMMARY | 2024-08-03 16:24 | XMS_ITS | Clinical Summary ---
Author Organization [facility] Address [address] [facility] [address] [place] [address] Care Team Providers Care Investigator Internal Affairs Name Role Phone Unavailable Primary Care Provider [...] patient's age to complete this topic Insurance [facility]
== END 2024-08-03 14:38 | disposition home or self-care (01) ==
LOC: HO.ENCR 13:56
PROVIDERS: PCP Internal Medicine; Visit Provider Physician Assistant
DX: E11.65 Type 2 diabetes mellitus with hyperglycemia (principal); Z79.4 Long term (current) use of insulin; I10 Essential (primary) hypertension; E78.00 Pure hypercholesterolemia, unspecified

== ENCOUNTER → 2024-08-03 13:56 | Outpatient (BNVA) | payer OTHER, SELFPAY | PROVIDERS: PCP Internal Medicine; Visit Provider Physician Assistant | DX: E11.65 Type 2 diabetes mellitus with hyperglycemia (principal); E78.00 Pure hypercholesterolemia, unspecified; I10 Essential (primary) hypertension; Z79.4 Long term (current) use of insulin | CPT/HCPCS: 82947; 99212 ==

== ENCOUNTER 2024-08-21 07:11 | Outpatient (REF) | payer MEDICARE, SELFPAY ==
--- OUTSIDE RECORDS SUMMARY | 2024-08-21 07:13 | XMS_ITS | Data Portability ---
Author Organization [facility] [address] Address [address] [place] [address] Assessment No assessment recorded. Plan of Treatment [...] Time 4 OC-DOT PHYSICAL completed Alpa Brunson [place] - [employer] [employer] 11/22/2023 08:35:44 3 OC-UDS Send Out Template DOT completed Estella Power [place] - [employer] 10/22/2022 11:22:59 Imaging Results None recorded. Procedure [...] Available Not Available No t Available FreeStyle [place] Lite kit TEST BLOOD SUGAR THREE TIMES [...] Updated DateTime 4 170.18 cm 29.8 kg/m2 39634.5 5 g 97 % 97 % 83 [...] SNOMED-CT Code Diagnosis ICD10 Code Diagnosis Note [id number] [id number] [address] 08/07/2017 11:29:10 08/07/2017 12:03:[id number] [address] 10/14/2020 14:01:46 10/14/2020 15:54:16 [id number] NICHOLAS CALIXTO [address] [address] 10/22/2022 11:02:40 10/22/2022 11:16:52 History and physical examination, occupation 251198614 Z02.1 [id number] [place] [address] [place] [address] 11/22/2023 08:29:49 11/22/2023 09:20:46 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
[2024-08-21 08:29] LABS: Anion Gap 11 (12-20); Blood Urea Nitrogen 21 mg/dL (9-16); Calcium 10.1 mg/dL (8.4-10.2); Carbon Dioxide 29 mmol/L (22-29); Chloride 106 mmol/L (96-108); Estimated Glomerular Filt Rate > 60; Glucose Random 81 mg/dL (60-115); Potassium 4.3 mmol/L (3.3-5.1); Sodium 142 mmol/L (135-145)
[2024-08-22 06:58] LABS: C Peptide 1.77 ng/mL (0.80-3.85)
[2024-08-30 00:14] LABS: Islet Cell Antibody Screen NEGATIVE (NEGATIVE)
[2024-08-30 18:03] LABS: Glutamic acid decarboxylase Ab <5 IU/mL (<5)
== END 2024-08-21 07:12 | disposition home or self-care (01) ==
LOC: HO.LAB 07:11
PROVIDERS: PCP Internal Medicine; Visit Provider Physician Assistant
DX: E11.65 Type 2 diabetes mellitus with hyperglycemia (principal); Z79.4 Long term (current) use of insulin; I10 Essential (primary) hypertension; E78.00 Pure hypercholesterolemia, unspecified
CPT/HCPCS: 36415; 80048; 84681; 86341

== ENCOUNTER 2024-08-24 13:44 | Outpatient (AMB) | payer OTHER, SELFPAY ==
[2024-08-24 13:57] VITALS: BP 116/78; PULSE 105; O2SAT 96; BMI 31.4
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
[2024-08-24 14:07] LABS: Glucose, Whole Blood 237 mg/dL (60-115)
--- OUTSIDE RECORDS SUMMARY | 2024-08-24 16:22 | XMS_ITS | Data Portability ---
Author Organization [place] [facility], [address] Address [address] [place] [address] Assessment No assessment recorded. Plan of Treatment [...] Time 4 OC-DOT PHYSICAL completed Alpa Brunson [place] - [email or web address] 11/22/2023 08:35:44 3 OC-UDS Send Out Template DOT completed Estella Power [place] - [email or web address] 10/22/2022 11:22:59 Imaging Results None recorded. Procedure [...] Available Not Available No t Available FreeStyle Eola Lite kit TEST BLOOD SUGAR THREE TIMES [...] Updated DateTime 4 170.18 cm 29.8 kg/m2 44337.5 5 g 97 % 97 % 83 [...] SNOMED-CT Code Diagnosis ICD10 Code Diagnosis Note [id number] [address] [address] 08/07/2017 11:29:10 08/07/2017 12:03:51 [id number] [address] [address] 10/14/2020 14:01:46 10/14/2020 15:54:16 [id number] NICHOLAS CALIXTO [address] [address] 10/22/2022 11:02:40 10/22/2022 11:16:52 History and physical examination, occupation [id number] Z02.1 [id number] [place] [address] [place] [address] 11/22/2023 08:29:49 11/22/2023 09:20:46 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
--- OUTSIDE RECORDS SUMMARY | 2024-08-24 16:22 | XMS_ITS | Clinical Summary ---
Author Organization [facility] Address [address] [facility] [address] [place] [address] Care Team Providers Care Leather Stretcher Name Role Phone Unavailable Primary Care Provider [...] patient's age to complete this topic Insurance [facility]
== END 2024-08-24 14:27 | disposition home or self-care (01) ==
LOC: HO.ENCR 13:45
PROVIDERS: PCP Internal Medicine; Visit Provider Physician Assistant
DX: E11.65 Type 2 diabetes mellitus with hyperglycemia (principal); Z79.4 Long term (current) use of insulin; E78.00 Pure hypercholesterolemia, unspecified; I10 Essential (primary) hypertension

== ENCOUNTER → 2024-08-24 13:44 | Outpatient (BNVA) | payer OTHER, SELFPAY | PROVIDERS: PCP Internal Medicine; Visit Provider Physician Assistant | DX: E11.65 Type 2 diabetes mellitus with hyperglycemia (principal); E78.00 Pure hypercholesterolemia, unspecified; I10 Essential (primary) hypertension; Z79.4 Long term (current) use of insulin | CPT/HCPCS: 82947; 99212 ==

== ENCOUNTER 2024-10-09 15:17 | Outpatient (AMB) | payer OTHER, SELFPAY ==
--- OUTSIDE RECORDS SUMMARY | 2024-10-09 15:19 | XMS_ITS | Data Portability ---
Author Organization [facility], [address] Address [address] [place] [address] Assessment No assessment recorded. Plan of Treatment [...] Time 4 OC-DOT PHYSICAL completed Alpa Brunson [place] - [facility] 11/22/2023 08:35:44 3 OC-UDS Send Out Template DOT completed Estella Power [place] - [employer] [employer] 10/22/2022 11:22:59 Imaging Results None recorded. [...] Available Not Available No t Available FreeStyle Rogers Lite kit TEST BLOOD SUGAR THREE TIMES [...] Updated DateTime 4 170.18 cm 29.8 kg/m2 42799.5 5 g 97 % 97 % 83 /min 18 /min 123 mm[Hg] 82 mm[Hg] Alpa Brunson [place] - [facility] 4 08:39:23 Social History None recorded. Functional Status None recorded. Mental Status None recorded. Family History Nothing Reported. Medical History No medical history recorded. Past Encounters Encounter ID Performer Location Encounter Start Date Encounter Closed Date Diagnosis/Indication Diagnosis SNOMED-CT Code Diagnosis ICD10 Code Diagnosis Note [id number] [address] [facility] [address] [place] [address] 08/07/2017 11:29:10 08/07/2017 12:03:51 [id number] [address] [facility] [address] [place] [address] 10/14/2020 14:01:46 10/14/2020 15:54:16 [id number] Jesus Sinclair NP [address] [facility] [address] [place] [address] 10/22/2022 11:02:40 10/22/2022 11:16:52 History and physical examination, occupation [id number] Z02.1 [id number] Jesus Sinclair [place] [address] [address] [place] [address] 11/22/2023 08:29:49 11/22/2023 09:20:46 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 [id number] Z02.4 Physical examination 588 0005 Z02.4 History an d physical examination, pre-employment [id number] Z02.1 This physical does not replace the [...] Recorded Advance Directives Directive None Recorded Payers Insurance Date Sequence Insurance Name Policy Number Policy Paula Covered Member ID Paual Member ID Guarantor Name 11/22/2023 PAY AT TOS Bon Abernathy OTHER OTHER Johnny Arden Kaspera 10/22/2022 OC-ESCREEN Escreen FED EX GROUND Bon Kaspera 11/22/2023 OC-PAY AT TIME OF SERVICE 2022 Bon Kaspera OTHER OTHER Bon Abernathy Notes Date Note Type Note Provider Name and Address Organization Details Recorded Time 11/22/2023 text/html PhysicalReported bypatient.source of patient informationpatient 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
[2024-10-09 15:32] VITALS: BP 92/60; PULSE 86; O2SAT 97; BMI 32.5
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
[2024-10-09 15:43] LABS: Glucose, Whole Blood 153 mg/dL (60-115)
== END 2024-10-09 15:59 | disposition home or self-care (01) ==
LOC: HO.ENCR 15:17
PROVIDERS: PCP Internal Medicine; Visit Provider Physician Assistant
DX: E11.65 Type 2 diabetes mellitus with hyperglycemia (principal); Z79.4 Long term (current) use of insulin; E78.00 Pure hypercholesterolemia, unspecified; I10 Essential (primary) hypertension; Z13.9 Encounter for screening, unspecified

== ENCOUNTER → 2024-10-09 15:17 | Outpatient (BNVA) | payer OTHER, SELFPAY | PROVIDERS: PCP Internal Medicine; Visit Provider Physician Assistant | DX: E11.65 Type 2 diabetes mellitus with hyperglycemia (principal); E78.00 Pure hypercholesterolemia, unspecified; I10 Essential (primary) hypertension; Z79.4 Long term (current) use of insulin; Z79.84 Long term (current) use of oral hypoglycemic drugs; Z79.899 Other long term (current) drug therapy | CPT/HCPCS: 82947; 83036; 99212 ==

== ENCOUNTER 2024-11-13 12:53 | Outpatient (AMB) | payer OTHER, SELFPAY ==
[2024-11-13 12:54] VITALS: BP 100/70; PULSE 83; BMI 31.5
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
[2024-11-13 13:05] LABS: Glucose, Whole Blood 295 mg/dL (60-115)
--- OUTSIDE RECORDS SUMMARY | 2024-11-13 13:29 | XMS_ITS | Data Portability ---
Author Organization [place] [employer] [facility], [address] Address [address] [place] [address] Assessment No assessment recorded. Plan of Treatment [...] Time 4 OC-DOT PHYSICAL completed Alpa Brunson [employer] 11/22/2023 08:35:44 3 OC-UDS Send Out Template DOT completed Estella Power [email or web address] 10/22/2022 11:22:59 Imaging Results None recorded. Procedure [...] Available Not Available No t Available FreeStyle Tuttle Lite kit TEST BLOOD SUGAR THREE TIMES DAILY active Not Available Not Available Not Available cholecalcife rol (vitamin D3) 50 mcg (2,000 unit) tablet TAKE 1 TABLET BY MOUTH EVERY DAY active Not Available Not Available No t Available UltiCare Pen Needle 32 gauge x 32 USE DIRECTED TWICE DAILY active Not Available [...] Updated DateTime 4 170.18 cm 29.8 kg/m2 35700.5 5 g 97 % 97 % 83 [...] SNOMED-CT Code Diagnosis ICD10 Code Diagnosis Note [id number] [address] [facility] [address] [place] [address] 08/07/2017 11:29:10 08/07/2017 12:03:51 [id number] [address] [facility] [address] [place] [address] 10/14/2020 14:01:46 10/14/2020 15:54:16 [id number] Jesus Sinclair [place] [address] [facility] [address] [place] [address] 10/22/2022 11:02:40 10/22/2022 11:16:52 History and physical examination, occupation [id number] Z02.1 [id number] [place] [address] 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 There may be additional screening tests that they will perform that we do not in the urgent care setting.Fa ilure to follow up as recommende d may result in significan t adverse health consequenc es. 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
== END 2024-11-13 13:14 | disposition home or self-care (01) ==
LOC: HO.ENCR 12:53
PROVIDERS: PCP Internal Medicine; Visit Provider Physician Assistant
DX: E11.65 Type 2 diabetes mellitus with hyperglycemia (principal); Z79.4 Long term (current) use of insulin; E78.00 Pure hypercholesterolemia, unspecified; I10 Essential (primary) hypertension

== ENCOUNTER → 2024-11-13 12:53 | Outpatient (BNVA) | payer OTHER, SELFPAY | PROVIDERS: PCP Internal Medicine; Visit Provider Physician Assistant | DX: E11.65 Type 2 diabetes mellitus with hyperglycemia (principal); E78.5 Hyperlipidemia, unspecified; E66.9 Obesity, unspecified; E78.00 Pure hypercholesterolemia, unspecified; I10 Essential (primary) hypertension; R80.9 Proteinuria, unspecified; Z79.4 Long term (current) use of insulin; Z79.899 Other long term (current) drug therapy; Z68.31 Body mass index [BMI] 31.0-31.9, adult | CPT/HCPCS: 82947; 99212 ==

== ENCOUNTER 2025-01-22 14:20 | Outpatient (AMB) | payer OTHER, SELFPAY ==
[2025-01-22 14:21] VITALS: BP 122/62; PULSE 73; O2SAT 97; BMI 31.1
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
[2025-01-22 14:33] LABS: Glucose, Whole Blood 272 mg/dL (60-115)
--- OUTSIDE RECORDS SUMMARY | 2025-01-22 14:46 | XMS_ITS | Clinical Summary ---
Author Organization [employer] Address [address] [facility] [address] [place] [address] Care Team Providers Care Lockstitch Front Edge Tape Sewer Name Role Phone Unavailable Primary Care Provider Unavailabl e Immunizations Immunization Administration Dates Next Due Moderna Covid-19 Vaccine [...] Panel 1976 SDOH Screening 1976 Sigmoidoscopy 1976 Disability Screening 1976 Alcohol/Substance Use Screening 1988 Tobacco Screening 1988 Family Planning (PISQ) 12/08/1991 Hepatitis C Screening 1994 DTaP/Tdap/Td Vaccines (1 - Tdap) 12/08/1995 Hepatitis B Vaccines (1 of 3 - 19+ 3-dose series) 12/08/1995 COVID-19 Vaccine ( season) 2024 05/03/2022, 05/17/2021, 08/31/2020, Additional history exists Influenza Vaccine (#1) 2025 , 03/22/2021, 03/24/2015 Zoster Vaccines (1 of [...] patient's age to complete this topic Meningococcal B Vaccine Aged Out No l onger eligible based on patient's age to complete this topic Meningococcal Vaccine Aged Out No jassi sp eligible based on patient's age to complete this topic Pneumococcal Vaccine: Pediatrics (0 to 5 Years) and At-Risk Patients (6 to 49) Years Aged Out No longer eligible based on patient's age to complete this topic RSV under 20 months Aged Out No longe r eligible based on patient's age to complete this topic Rotavirus Vaccines Aged Out No longer eligible based on patient's age to complete this topic Insurance [facility] (O)
== END 2025-01-22 14:41 | disposition home or self-care (01) ==
LOC: HO.ENCR 14:21
PROVIDERS: PCP Internal Medicine; Visit Provider Physician Assistant
DX: Z13.9 Encounter for screening, unspecified (principal); E11.65 Type 2 diabetes mellitus with hyperglycemia; Z79.4 Long term (current) use of insulin; I10 Essential (primary) hypertension

== ENCOUNTER → 2025-01-22 14:20 | Outpatient (BNVA) | payer OTHER, SELFPAY | PROVIDERS: PCP Internal Medicine; Visit Provider Physician Assistant | DX: E11.65 Type 2 diabetes mellitus with hyperglycemia (principal); E11.29 Type 2 diabetes mellitus with other diabetic kidney complication; R80.9 Proteinuria, unspecified; I10 Essential (primary) hypertension; E78.5 Hyperlipidemia, unspecified; E66.9 Obesity, unspecified; Z79.4 Long term (current) use of insulin; Z79.899 Other long term (current) drug therapy; Z68.31 Body mass index [BMI] 31.0-31.9, adult | CPT/HCPCS: 82947; 83036; 99212 ==

== ENCOUNTER 2025-04-19 15:36 | Outpatient (AMB) | payer OTHER, SELFPAY ==
[2025-04-19 15:43] VITALS: BP 110/80; PULSE 101; O2SAT 98; BMI 30.6
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
--- OUTSIDE RECORDS SUMMARY | 2025-04-19 18:32 | XMS_ITS | Clinical Summary ---
Author Organization [employer] Address [address] [facility] [address] [place] [address] Care Team Providers Care Orthodontic Technician Name Role Phone Unavailable Primary Care Provider [...] 3-dose series) 12/08/1995 COVID-19 Vaccine ( season) 2025 05/03/2022, 05/17/2021, 08/31/2020, Additional history exists Influenza [...] patient's age to complete this topic Insurance [facility] (O)
== END 2025-04-19 16:22 | disposition home or self-care (01) ==
LOC: HO.HMCH 15:37
PROVIDERS: PCP Internal Medicine; Visit Provider Internal Medicine
DX: E11.9 Type 2 diabetes mellitus without complications (principal); Z79.4 Long term (current) use of insulin; E66.9 Obesity, unspecified; Z68.30 Body mass index [BMI] 30.0-30.9, adult; I10 Essential (primary) hypertension; E78.00 Pure hypercholesterolemia, unspecified; R80.9 Proteinuria, unspecified; G63 Polyneuropathy in diseases classified elsewhere; M79.7 Fibromyalgia; N40.1 Benign prostatic hyperplasia with lower urinary tract symptoms; R35.0 Frequency of micturition; G47.00 Insomnia, unspecified

== ENCOUNTER → 2025-04-19 15:36 | Outpatient (BNVA) | payer OTHER, SELFPAY | PROVIDERS: PCP Internal Medicine; Visit Provider Internal Medicine | DX: E11.9 Type 2 diabetes mellitus without complications (principal); I10 Essential (primary) hypertension; E78.00 Pure hypercholesterolemia, unspecified; R80.9 Proteinuria, unspecified; G63 Polyneuropathy in diseases classified elsewhere; M79.7 Fibromyalgia; N40.1 Benign prostatic hyperplasia with lower urinary tract symptoms; R35.0 Frequency of micturition; G47.00 Insomnia, unspecified; E66.9 Obesity, unspecified; Z13.31 Encounter for screening for depression; Z13.39 Encounter for screening examination for other mental health and behavioral disorders; Z79.4 Long term (current) use of insulin | CPT/HCPCS: 96127; 99212 ==

== ENCOUNTER 2025-04-30 14:24 | Outpatient (AMB) | payer OTHER, SELFPAY ==
[2025-04-30 14:26] VITALS: BP 118/82; PULSE 75; O2SAT 99; BMI 31.0
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
[2025-04-30 14:38] LABS: Glucose, Whole Blood 396 mg/dL (60-115)
--- OUTSIDE RECORDS SUMMARY | 2025-04-30 19:39 | XMS_ITS | Data Portability ---
Author Organization [place] [employer] [facility], [address] Address [address] [place] [address] Assessment No assessment recorded. Plan of Treatment [...] Time 4 OC-DOT PHYSICAL completed Alpa Brunson [employer] 11/22/2023 08:35:44 3 OC-UDS Send Out Template DOT completed Estella [employer] 10/22/2022 11:22:59 Imaging Results None recorded. Procedure [...] Available Not Available No t Available FreeStyle [place] Lite kit TEST BLOOD SUGAR THREE TIMES [...] mass index (BMI) Body weight Oxygen saturation Heart rate Respiratory rate Systolic And Diastolic Provider Name and Address Organization Details Last Updated DateTime 4 170.18 cm 29.8 kg/m2 36676.5 5 g 97 % 83 /min 18 /min 123/82 mm[Hg] Alpa Reavesnton PA - [facility] 4 08:39:23 Social History None recorded. Functional Status None recorded. Mental Status None recorded. Family History Nothing Reported. Medical History No medical history recorded. Past Encounters Encounter ID Performer Location Encounter Start Date Encounter Closed Date Diagnosis/Indication Diagnosis SNOMED-CT Code Diagnosis ICD10 Code Diagnosis IMO Codes Diagnosis Note [id number] [address] [facility] [address] [place] [address] 08/07/2017 11:29:10 08/07/2017 12:03:51 [id number] [address] [place] [address] 10/14/2020 14:01:46 10/14/2020 15:54:16 [id number] Jesus Sinclair [place] [address] [address] 10/22/2022 11:02:40 10/22/2022 11:16:52 History and physical examination, occupation [id number] Z02.1 [id number] Jesus [place] [address] [address] [place] [address] 11/22/2023 08:29:49 11/22/2023 09:20:46 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 There may be additional screening tests that they will perform that we do not in the urgent care setting.Fa ilure to follow up as recommende d may result in significan t adverse health consequenc es. 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 For patient presents for a physical for, patient reportsemployment. 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 Jesus Sinclair NP [address] [place], [address], [place] - [facility] 11/22/2023 09:20:19
== END 2025-04-30 14:47 | disposition home or self-care (01) ==
LOC: HO.ENCR 14:25
PROVIDERS: PCP Internal Medicine; Visit Provider Physician Assistant
DX: Z13.9 Encounter for screening, unspecified (principal); E11.65 Type 2 diabetes mellitus with hyperglycemia; Z79.4 Long term (current) use of insulin; I10 Essential (primary) hypertension

== ENCOUNTER → 2025-04-30 14:24 | Outpatient (BNVA) | payer OTHER, SELFPAY | PROVIDERS: PCP Internal Medicine; Visit Provider Physician Assistant | DX: E11.65 Type 2 diabetes mellitus with hyperglycemia (principal); I10 Essential (primary) hypertension; Z79.4 Long term (current) use of insulin | CPT/HCPCS: 82947; 83036; 99212 ==